=== PATIENT | male | born 1955 | race Two or more races ===

== ENCOUNTER → 2022-09-03 | Emergency (ER) | payer OTHER ==
[~2022-09-03] VITALS: Ht 172.7 cm; Wt 77.1 kg
[~2022-09-03] MED LIST: AUGMENTIN XR 11 EACH PO; CARVEDILOL25 M1 PO; CHILDREN'S ASPI81 MG PO; DIOVAN320 MG PO; HORIZANT300 MG PO; LASIX40 MG PO; NIFEDIPINE20 MG PO; TAMS0.4C PO
== END | disposition home or self-care (01) ==
LOC: ER 21:37
DX: I10 Essential (primary) hypertension (principal); E11.9 Type 2 diabetes mellitus without complications